=== PATIENT | male | born 1975 | race Hispanic/Latino ===

== ENCOUNTER 2024-05-10 18:05 | Emergency (ER) | payer SELFPAY | END 2024-05-10 18:44 | disposition home or self-care (01) | LOC: CSHERS 18:05 | DX: S63.91XA Sprain of unspecified part of right wrist and hand, initial encounter (principal); W27.8XXA Contact with other nonpowered hand tool, initial encounter; Y99.0 Civilian activity done for income or pay | CPT/HCPCS: 99283 ==